=== PATIENT | female | born 1955 | race Caucasian/White ===

== ENCOUNTER → 2018-09-08 | Outpatient (CLI) | payer SELFPAY ==
[~2018-09-08] MED LIST: ASPI-621 PO; CELE200C PO; DOCU-131 PO; FENT1PAT77 TD; KETO10TA PO; MORP10CA7 PO; ONDA4TAB10 PO; OXYC10TA72 PO; OXYC15TA PO; OXYC5CAP2 PO
[2018-09-08 16:06] LABS: MICROSCOPIC NOT IND
[2018-09-08 16:07] LABS: BASOPHILS # (AUTO) 0.06 x10^3/uL (0-0.1); BASOPHILS % (AUTO) 1 % (0-1); EOSINOPHILS # (AUTO) 0.15 x10^3/uL (0-0.4); EOSINOPHILS % (AUTO) 2 % (1-7); LYMPHOCYTES # (AUTO) 2.77 x10^3/uL (1-3.4); LYMPHOCYTES % (AUTO) 30 % (22-44); MD NO; MEAN CORPUSCULAR HEMOGLOBIN 32.3 pg (27.0-34.8); MEAN CORPUSCULAR HGB CONC 34.3 g/dL (32.4-35.8); MEAN CORPUSCULAR VOLUME 94.3 fL (80-100); MEAN PLATELET VOLUME 7.8 fL (7.4-10.4); MONOCYTES # (AUTO) 0.58 x10^3/uL (0.2-0.8); MONOCYTES % (AUTO) 6 % (2-9); NEUTROPHILS # (AUTO) 5.71 x10^3/uL (1.8-6.8); NEUTROPHILS % (AUTO) 62 % (42-75); PLATELET COUNT 280 x10^3/uL (130-400); RED BLOOD COUNT 5.14 x10^6/uL (3.82-5.3); RED CELL DISTRIBUTION WIDTH 13.9 % (9.6-15.2)
[2018-09-08 16:10] LABS: CULTURE INDICATED? NO
[2018-09-08 16:16] LABS: PROTHROMBIN TIME 10.3 Seconds (9.6-11.5)
[2018-09-08 16:17] LABS: ANION GAP 10 mmol/L (5-15); CALCIUM 8.9 mg/dL (8.5-10.1); CHLORIDE 107 mmol/L (98-107)
[2018-09-08 16:18] LABS: CREATININE 0.75 mg/dL (0.55-1.02)
[2018-09-08 17:07] LABS: HEMOGLOBIN A1C 6.1 % (4.2-6.3)
== END | disposition home or self-care (01) ==
LOC: STAR 14:46
PROVIDERS: ATTEND Orthopaedic Surgery
DX: Z01.818 Encounter for other preprocedural examination (principal); M17.11 Unilateral primary osteoarthritis, right knee
CPT/HCPCS: 36415; 80048; 81003; 83036; 85025; 85610; 85730; 87081; 87147; 87806; 93005; G0475

== ENCOUNTER 2018-09-15 09:08 | Observation (INO) | payer BC ==
[2018-09-08 15:30] VITALS: BP 131/81
[~2018-09-15] VITALS: Ht 160 cm; Wt 103.5 kg
[~2018-09-15 09:08] MED LIST changes: -ASPI-621 PO; -CELE200C PO; -DOCU-131 PO; +EPINEPHRINE 1 MG/ML, 1ML ONE; -KETO10TA PO; +KETOROLAC 60 MG/2 ML ONE; -MORP10CA7 PO; -ONDA4TAB10 PO; -OXYC10TA72 PO; -OXYC5CAP2 PO; +ROPIvacaine/PF 0.2%, 20 ML ONE; +TRANEXAMIC ACID 100 MG/ML, 10ML ONE
[2018-09-15] MEDS ORDERED: LACTATED RINGERS 1,000 ML IV SCH (10:07)
[2018-09-15] MEDS ORDERED: GABAPENTIN 300 MG CAPSULE PO ONE (10:30)
[2018-09-15] MEDS ORDERED: ACETAMINOPHEN 500 MG TABLET PO ONE (10:30)
[2018-09-15] MEDS ORDERED: MIDAZOLAM 1 MG/ML, 2ML ONE (10:50)
[2018-09-15] MEDS ORDERED: FENTANYL PF 250 MCG/5ML ONE (10:50)
[2018-09-15] MEDS ORDERED: PROPOFOL 10 MG/ML, 20ML ONE (11:45)
[2018-09-15] MEDS ORDERED: CEFAZOLIN 1,000 MG ONE (11:45)
[2018-09-15] MEDS ORDERED: SUCCINYLCHOLINE 20 MG/ML, 10ML ONE (11:45)
[2018-09-15] MEDS ORDERED: ONDANSETRON 2MG/ML, 2ML ONE ×2 (11:45→13:52)
[2018-09-15] MEDS ORDERED: ROCURONIUM 10 MG/ML,10ML ONE (11:45)
[2018-09-15] MEDS ORDERED: DEXAMETHASONE 4 MG/ML, 1ML ONE (11:45)
[2018-09-15] MEDS ORDERED: LABETALOL 5MG/ML, 20ML ONE (11:45)
[2018-09-15] MEDS ORDERED: PROMETHAZINE 12.5 MG SUPP PR PRN ×2 (13:00→13:30)
[2018-09-15] MEDS ORDERED: ONDANSETRON 2MG/ML, 2ML IV PRN ×2 (13:00→13:30)
[2018-09-15] MEDS ORDERED: ONDANSETRON ODT 8 MG PO PRN (13:00)
[2018-09-15] MEDS ORDERED: OXYcodone 5 MG/5 ML ORAL.SOL UDC PO PRN (13:00)
[2018-09-15] MEDS ORDERED: LABETALOL 5MG/ML, 20ML IV PRN (13:00)
[2018-09-15] MEDS ORDERED: MAGNESIUM HYDROXIDE 8%, 30ML UDC PO PRN (13:30)
[2018-09-15] MEDS ORDERED: DIPHENHYDRAMINE 25 MG CAPSULE PO PRN (13:30)
[2018-09-15] MEDS ORDERED: TRANEXAMIC ACID 1,000 MG in SODIUM CHLORIDE 0.9% 100 ML IVPB ONE (13:30)
[2018-09-15] MEDS ORDERED: SENNA/DOCUSATE TABLET PO PRN (13:30)
[2018-09-15] MEDS ORDERED: CEFAZOLIN PMX 1GM/50ML 50 ML IVPB SCH (13:30)
[2018-09-15] MEDS ORDERED: ALUMINUM/MAG/SIMETHICONE 30 ML UDC PO PRN (13:30)
[2018-09-15] MEDS: LORazepam 2 MG/ML, 1ML IVPush PRN ×3 (13:30→14:40)
[2018-09-15] MEDS ORDERED: ACETAMINOPHEN 650 MG/20.3 ML UDC PO PRN (13:30)
[2018-09-15] MEDS ORDERED: PROMETHAZINE 25 MG/ML, 1ML IM PRN (13:30)
[2018-09-15] MEDS ORDERED: ONDANSETRON 4 MG TABLET PO PRN (13:30)
[2018-09-15] MEDS ORDERED: BISACODYL 10 MG SUPP PR PRN (13:30)
[2018-09-15] MEDS: FENTANYL PF 100 MCG/2ML IV PRN ×4 (13:30→14:35)
[2018-09-15] MEDS ORDERED: FENTANYL PF 100 MCG/2ML ONE ×2 (13:32→14:15)
[2018-09-15] MEDS ORDERED: LORazepam 2 MG/ML, 1ML ONE (13:32)
[2018-09-15] MEDS ORDERED: OXYcodone 5 MG/5 ML ORAL.SOL UDC ONE (13:32)
[2018-09-15] MEDS ORDERED: HYDROmorphone 2 MG/ML, 1ML ONE ×2 (13:39→17:14)
[2018-09-15] MEDS: HYDROmorphone 1 MG/ML, 1ML IV PRN ×5 (13:40→17:17)
[2018-09-15] MEDS ORDERED: hydrALAzine 20 MG/ML, 1ML ONE (14:24)
[2018-09-15] MEDS: hydrALAzine 20 MG/ML, 1ML IV PRN ×2 (14:25→14:47)
[2018-09-15] MEDS: D5%-0.45NACL+KCL 20MEQ 1,000 ML IV SCH (17:19)
[2018-09-15] MEDS: OXYcodone IR 5MG TABLET PO PRN ×2 (18:06→22:22)
[2018-09-15] MEDS: CEFAZOLIN PMX 1GM/50ML 50 ML IVPB SCH (19:54)
[2018-09-15] MEDS: DOCUSATE 100 MG CAPSULE PO SCH (20:58)
[2018-09-15] MEDS: OxyconTIN ER 10 MG TAB.ER PO SCH (20:58)
[2018-09-15 21:00] VITALS: BP 146/86
[2018-09-16] MEDS ORDERED: HYDROmorphone 2 MG/ML, 1ML ONE (00:18)
[2018-09-16] MEDS: HYDROmorphone 1 MG/ML, 1ML IV PRN (00:21)
[2018-09-16 00:58] VITALS: BP 148/76
[2018-09-16] MEDS: D5%-0.45NACL+KCL 20MEQ 1,000 ML IV SCH ×3 (03:15→22:30)
[2018-09-16] MEDS: CEFAZOLIN PMX 1GM/50ML 50 ML IVPB SCH (03:38)
[2018-09-16] MEDS: ASPIRIN 81 MG TABLET EC PO SCH (05:20)
[2018-09-16] MEDS: OXYcodone IR 5MG TABLET PO PRN ×3 (05:20→18:29)
[2018-09-16] MEDS ORDERED: DEXAMETHASONE 4 MG/ML, 1ML IVPush SCH (06:00)
[2018-09-16 07:41] VITALS: BP 117/78
[2018-09-16] MEDS ORDERED: DOCU-131 PO (08:47)
[2018-09-16] MEDS ORDERED: MORP10CA7 PO (08:47)
[2018-09-16] MEDS ORDERED: ONDA4TAB10 PO (08:47)
[2018-09-16] MEDS ORDERED: ASPI-621 PO (08:47)
[2018-09-16] MEDS ORDERED: OXYC5CAP2 PO (08:47)
[2018-09-16] MEDS ORDERED: CELE200C PO (08:47)
[2018-09-16] MEDS ORDERED: FENTANYL REMOVE PATCH NOTE XX SCH (09:00)
[2018-09-16] MEDS ORDERED: FENTANYL 25 MCG PATCH TD SCH (09:00)
[2018-09-16] MEDS: OxyconTIN ER 10 MG TAB.ER PO SCH ×2 (09:32→21:00)
[2018-09-16] MEDS: DOCUSATE 100 MG CAPSULE PO SCH ×2 (11:00→21:00)
[2018-09-16] MEDS: TAMSULOSIN 0.4 MG CAP.ER.24H PO SCH (11:00)
[2018-09-16 12:47] VITALS: BP 152/83
[2018-09-16] MEDS: KETOROLAC 30 MG/1 ML IV SCH ×2 (13:57→21:01)
[2018-09-16 20:00] VITALS: BP 152/85
[2018-09-17 01:40] VITALS: BP 122/78
[2018-09-17] MEDS: OXYcodone IR 5MG TABLET PO PRN ×3 (03:15→09:07)
[2018-09-17] MEDS: ASPIRIN 81 MG TABLET EC PO SCH (06:04)
[2018-09-17] MEDS: KETOROLAC 30 MG/1 ML IV SCH (06:04)
[2018-09-17 08:00] VITALS: BP 114/75
[2018-09-17] MEDS: OxyconTIN ER 10 MG TAB.ER PO SCH (09:08)
[2018-09-17] MEDS: DOCUSATE 100 MG CAPSULE PO SCH (09:08)
[2018-09-17] MEDS: TAMSULOSIN 0.4 MG CAP.ER.24H PO SCH (09:08)
[2018-09-17] MEDS ORDERED: KETO10TA PO (11:10)
[2018-09-17] MEDS ORDERED: OXYC10TA72 PO (11:49)
== END 2018-09-17 12:00 | disposition home or self-care (01) ==
LOC: OUT 09:08 → ORIP 13:27 → 4NOR 15:24 → DCLOUNGE 09-17 11:41
PROVIDERS: ADMIT Orthopaedic Surgery; ATTEND Orthopaedic Surgery
DX: M17.11 Unilateral primary osteoarthritis, right knee (principal)
CPT/HCPCS: 27447; 36415; 73560; 85014; 85018; 96365; 96366; 96375; 96376; 97110; 97116; 97161; 97166; 97530; C1713; C1776; G0378; J0171; J0330; J0360; J0690; J1100; J1170; J1885; J2060; J2250; J2405; J2704; J2795; J3010; J3480; J7120